=== PATIENT | female | born 1975 | race Two or more races ===

== ENCOUNTER 2021-09-21 20:46 | Emergency (ER) | payer SELFPAY ==
[~2021-09-21] VITALS: Ht 167.6 cm; Wt 96.2 kg
[2021-09-21] MEDS ORDERED: EPINEPHrine 1 MG/ML VIAL SQ ONE ×2 (21:15→21:45)
[2021-09-21] MEDS ORDERED: methylPREDNISolone SOD SUCC PF 125 MG/2 ML VIAL. IV ONE (21:15)
[2021-09-21] MEDS ORDERED: FAMOTIDINE 20 MG/2 ML VIAL IVP ONE (21:15)
[2021-09-21] MEDS ORDERED: diphenhydrAMINE 50 MG/ML VIAL IVP ONE (21:15)
--- NOTE | 2021-09-21 21:23 | PHYS DOC ---
Past Medical History Past Medical History: Depression Past Surgical History: No Surgical History, Tubal ligation, Other Additional Past Surgical Histo: L foot(club foot) Smoking Status: Current Every Day Smoker Alcohol Use: Occasionally Drug Use: None General Adult EDM: Chief Complaint: ALLERGIC REACTION HPI: HPI: Patient is a 46-year-old female who presents today with a possible allergic reaction. Patient states that she ate food today with shrimp earlier this evening, she said she broke out in a full body rash and has been having itching and swelling of her face since that time. Patient states she has eaten shrimp in the past and has never had any problems with it, she says she is just having swelling and itching and she would like this taken care of. Patient states she took Benadryl at home and then came here to the emergency department. Review of Systems: Review of Systems: Constitutional: Denies fever or chills. [] Eyes: Denies change in visual acuity. [] HENT: Facial swelling denies nasal congestion or sore throat. [] Respiratory: Denies cough or shortness of breath. [] Cardiovascular: Denies chest pain or edema. [] GI: Denies abdominal pain, nausea, vomiting, bloody stools or diarrhea. [] : Denies dysuria. [] Musculoskeletal: Denies back pain or joint pain. [] Integument: rash. [] Neurologic: Denies headache, focal weakness or sensory changes. [] Endocrine: Denies polyuria or polydipsia. [] Lymphatic: Denies swollen glands. [] Psychiatric: Denies depression or anxiety. [] Heart Score: C/O Chest Pain: No Risk Factors: Risk Factors: DM, Current or recent (<one month) smoker, HTN, HLP, family history of CAD, obesity. Risk Scores: Score 0 - 3: 2.5% MACE over next 6 weeks - Discharge Home Score 4 - 6: 20.3% MACE over next 6 weeks - Admit for Clinical Observation Score 7 - 10: 72.7% MACE over next 6 weeks - Early Invasive Strategies Current Medications: Current Medications Medications (Trade) Dose Ordered Sig/Francine Route PRN Reason Start Time Stop Time Status Last Admin Dose Admin Epinephrine HCl (Adrenalin) 0.3 mg 1X ONCE SQ 09/21/21 21:15 09/21/21 21:16 DC 09/21/21 21:13 Diphenhydramine HCl (Benadryl) 50 mg 1X ONCE IVP 09/21/21 21:15 09/21/21 21:16 DC 09/21/21 21:13 Methylprednisolone Sodium Succinate (SOLU-Medrol 125MG VIAL) 125 mg 1X ONCE IV 09/21/21 21:15 09/21/21 21:16 DC 09/21/21 21:13 Famotidine (Pepcid Vial) 20 mg 1X ONCE IVP 09/21/21 21:15 09/21/21 21:16 DC 09/21/21 21:24 Epinephrine HCl (Adrenalin) 0.3 mg 1X ONCE SQ 09/21/21 21:45 09/21/21 21:46 DC 09/21/21 21:37 Current Medications Medications (Trade) Dose Ordered Sig/Francine Start Time Stop Time Status Last Admin Dose Admin Diphenhydramine HCl (Benadryl) 50 mg 1X ONCE 09/21/21 21:15 09/21/21 21:16 DC 09/21/21 21:13 50 MG Epinephrine HCl (Adrenalin) 0.3 mg 1X ONCE 09/21/21 21:15 09/21/21 21:16 DC 09/21/21 21:13 0.3 MG Famotidine (Pepcid Vial) 20 mg 1X ONCE 09/21/21 21:15 09/21/21 21:16 DC Methylprednisolone Sodium Succinate (SOLU-Medrol 125MG VIAL) 125 mg 1X ONCE 09/21/21 21:15 09/21/21 21:16 DC 09/21/21 21:13 125 MG Allergies: Allergies: Allergies Coded Allergies Type Severity Reaction Last Updated Verified No Known Drug Allergies 09/21/21 No Physical Exam: PE: Constitutional: Well developed, well nourished, mild distress, non-toxic appearance. [] HENT: Normocephalic, atraumatic, facial swelling noted, swelling of the lips noted, patient is able to open mouth and I was able to visualize her uvula, no stridor noted Eyes: PERRLA, EOMI, conjunctiva normal, no discharge. [] Neck: Normal range of motion, no tenderness, supple, no stridor. [] Cardiovascular:Heart rate regular rhythm, no murmur [] Lungs & Thorax: Bilateral breath sounds clear to auscultation [] Abdomen: Bowel sounds normal, soft, no tenderness, no masses, no pulsatile masses. [] Skin: Full body your to correct rash noted Back: No tenderness, no CVA tenderness. [] Extremities: No tenderness, no cyanosis, no clubbing, ROM intact, no edema. [] Neurologic: Alert and oriented X 3, normal motor function, normal sensory function, no focal deficits noted. [] Psychologic: Affect normal, judgement normal, mood normal. [] Current Patient Data: Vital Signs: Vital Signs Date Time Temp Pulse Resp B/P (MAP) Pulse Ox O2 Delivery O2 Flow Rate FiO2 09/22/21 01:23 75 140/81 (100) 96 Room Air 09/22/21 00:53 90 146/78 (100) 94 Room Air 09/22/21 00:23 84 151/80 (103) 96 Room Air 09/21/21 23:47 102 145/100 (115) 100 Room Air 09/21/21 22:24 125 160/74 (102) 100 Room Air 09/21/21 21:54 104 183/84 (117) 97 Room Air 09/21/21 21:24 91 188/108 (134) 100 Room Air 09/21/21 21:09 74 172/96 (121) 99 Room Air 09/21/21 20:52 73 20 147/90 (109) 94 Room Air Vital Signs Date Time Temp Pulse Resp B/P (MAP) Pulse Ox O2 Delivery O2 Flow Rate FiO2 09/21/21 20:52 73 20 147/90 (109) 94 Room Air Vital Signs Date Time Temp Pulse Resp B/P (MAP) Pulse Ox O2 Delivery O2 Flow Rate FiO2 09/21/21 20:52 73 20 147/90 (109) 94 Room Air EKG: EKG: [] Radiology/Procedures: Radiology/Procedures: [] Course & Med Decision Making: Course & Med Decision Making Pertinent Labs and Imaging studies reviewed. (See chart for details) 2300 reassessment of patient shows patient's voice is less hoarse, she has no complaints of chest pain or shortness of breath, she feels like her face is in and swelling are decreased significantly and her lips are back to normal, patient has no rash or itching. It was referred by Dr. Cobb that the patient should wait 4 hours after the last dose of epinephrine before patient should be discharged. Patient has been informed to is avoid any shellfish products at this time, she is to follow-up with Dr. Roach her primary care physician for allergy testing for any further evaluation and management of any allergens she may have. Patient is encouraged to return here to the emergency department for any signs and symptoms of allergic reaction such as swelling in the face lips or ureter [place] rash. Patient is instructed to take prednisone on a daily basis as prescribed for the next 5 days, she is also instructed to take [id number] Benadryl every 6 hours for the next 48 hours and then Pepcid twice a daily for the next 48 hours as well. Patient will also be given a prescription for epinephrine pen this is the trach is a still on the front epinephrine pen should she need it in the future. I spoke at length with her and family member at the bedside on the uses of an epinephrine pen and when to use them. Jessica Disclaimer: Jessica Disclaimer: This electronic medical record was generated, in whole or in part, using a voice recognition dictation system. Departure Departure Impression: Primary Impression: Acute allergic reaction Qualified Codes: T78.40XA - Allergy, unspecified, initial encounter Disposition: HOME / SELF CARE / HOMELESS Condition: STABLE Referrals: STEPHEN ROACH (PCP) Patient Instructions: Epinephrine injection (Auto-injector) Additional Instructions: Prednisone 50 mg take daily for the next 5 days [id number] Benadryl 1 to 2 tablets every 6 hours for the next 48 hours and then as needed for rash [id number] Pepcid 20 mg twice daily for the next 48 hours and then as needed for rash Follow-up with your primary care physician tomorrow by phone to see about getting follow-up for further evaluation of this allergy allergic reaction that you had Return here to the emergency department if you continue to have swelling in your face or lips, you have to use your epinephrine pen at any given time, or any other concerns you may have Scripts Prednisone (PREDNISONE) 50 Mg Tablet 1 TAB PO DAILY, #5 TAB Prov: JAYDON SANCHEZ APRN 09/21/21 Epinephrine (EPIPEN 2-CASSI) 0.3 Mg/0.3 Ml Auto.injct 1 SYR IM ONCE for 1 Day, #1 PACKET 0 Refills IF YOU USE THIS PEN FOR ALLERGIC REACTION, GO TO ED IMMEDIATELY Prov: JAYDON SANCHEZ APRN 09/21/21 JAYDON SANCHEZ [employer] Sep 21, 2021 21:23
[2021-09-21] MEDS ORDERED: PRED50TA PO (23:13)
[2021-09-21] MEDS ORDERED: EPIPEN 2-P0.3 MG/0.3 IM (23:13)
[2021-09-22 01:23] VITALS: BP 140/81
== END 2021-09-22 02:00 | disposition home or self-care (01) ==
LOC: ER 20:46
DX: T78.40XA Allergy, unspecified, initial encounter (principal); F17.200 Nicotine dependence, unspecified, uncomplicated
CPT/HCPCS: 96372; 96374; 96375; 99285; J0171; J1200; J2930; J3490